=== PATIENT | female | born 2000 | race Caucasian/White ===

== ENCOUNTER 2020-07-18 22:41 | Emergency (ER) | payer BC, SELFPAY ==
--- NOTE | ~2020-07-18 | CT_ITS ---
EXAMINATION: CT abdomen pelvis w con EXAM DATE: 07/19/2020 00:27 INDICATION: Abdominal pain. TECHNIQUE: Spiral CT of the abdomen and pelvis was performed following intravenous injection of 100 m L Omnipaque 350. Axial, coronal and sagittal images of the abdomen and pelvis were reviewed. The do se-length product (DLP) for this examination was 550.84 mGy-cm. The exposure was tailored according to patient size (auto mA exposure control), and iterative reconstruction (ASIR) was used as additiona l dose reduction technique. There is no prior study for comparison. FINDINGS: The liver, spleen, adrenal glands and pancreas are unremarkable. The gallbladder is contra cted but otherwise unremarkable. Normal spleen size. Portal and splenic veins are patent. Kidneys e nhance symmetrically. There is no hydronephrosis. The uterus is retroverted and morphologically no rmal. The bladder is unremarkable. There is no retroperitoneal or pelvic lymphadenopathy. The appendix is normal. The stomach and small bowel are unremarkable. There is moderate amount of c olonic stool. No free intraperitoneal gas. The heart is normal in size. There are no pericardial or pleural effusions. The lung bases are unremarkable. The bones are unremarkable. IMPRESSION: 1. Moderate amount of colonic stool. Reviewed, dictated and finalized at location [facility].
[2020-07-18 22:43] VITALS: BP 122/68; PULSE 73; RESP 18; TEMP 36.3; O2SAT 100
[2020-07-18 23:05] LABS: Basophils Percent Auto 0.4 % (0.2-1.2); Eosinophils Absolute Auto 0.1 K/mm3 (0-0.3); Eosinophils Percent Auto 1.4 % (0-4.4); Hemoglobin 9.9 g/dL (12.0-15.0); Immature Granulocyte Absolute 0.01 K/mm3 (0.00-0.031); Immature Granulocyte Percent A 0.2 % (0-0.5); Lymphocytes Absolute Auto 2.07 K/mm3 (0.9-3.2); Lymphocytes Percent Auto 36.6 % (18.3-44.2); Mean Corpuscular Volume 73.5 fl (80-100); Mean Platelet Volume 9.3 fl (7.4-10.4); Monocytes Absolute Auto 0.4 K/mm3 (0.1-0.6); Monocytes Percent Auto 6.4 % (2.6-8.5); Neutrophils Absolute Auto 3.1 K/mm3 (1.3-6.7); Platelet Count Result 338 k/mm3 (150-375); Red Blood Count 4.49 M/mm3 (4.2-5.4); Red Cell Distribution Width 17.9 % (11.5-14.5); White Blood Count 5.7 K/mm3 (4.5-10.0)
[2020-07-18 23:16] LABS: Alanine Aminotransferase 17 U/L (4-35); Albumin Level 4.2 g/dL (3.5-5.1); Alkaline Phosphatase 74 U/L (38-126); Anion Gap 9 mmol/L (8-16); Aspartate Amino Transferase 29 U/L (14-36); Bilirubin,Total 0.2 mg/dL (0.2-1.3); Blood Urea Nitrogen 12 mg/dL (7-17); Calcium 9.2 mg/dL (8.4-10.2); Carbon Dioxide 23 mmol/L (22-30); Chloride 105 mmol/L (98-107); Estimated Glomerular Filt Rate > 60; Glucose 104 mg/dL (65-105); Lipase 134 U/L (23-300); Potassium 4.1 mmol/L (3.4-5.0); Sodium 137 mmol/L (137-145)
--- NOTE | 2020-07-18 23:30 | ED.GENADULT ---
HPI - General Adult General Chief complaint: Abdominal Pain Stated complaint: abd pain Time Seen by Provider: 07/18/20 23:27 Source: RN notes reviewed History of Present Illness HPI narrative: Patient presents emergency room from home for abdominal pain. Patient is presently on prior arrival she got a severe stabbing abdominal pain diffuse throughout her abdomen but worse on the left side. Patient states she had mono approximately 3 months ago and feels like her spleen is enlarged she feels she can see it sticking out of her stomach she denies having any fevers or chills chest pain or shortness of breath she states she did have an episode of diarrhea yesterday as well as nausea vomiting 2 days ago states she has been having intermittent abdominal pain for the past month she denies taking any medication for symptoms at home Related Data Allergies Allergy/AdvReac Type Severity Reaction Status Date / Time No Known Allergies Allergy Verified 07/18/20 23:59 Review of Systems Review of Systems: Narrative: Gen.: Denies fevers or chills ENT: Denies congestion Respiratory: Denies shortness of breath or cough CV: Denies chest pain or palpitations GI: See HPI denies burning, urgency, frequency or hematuria Musculoskeletal: Denies back pain or muscle pain Neuro: Denies numbness, tingling, weakness or focal weakness Skin: Denies rash Except as documented, all other systems reviewed and negative [facility] Past Medical History Medical History (Updated 07/19/20 @ 02:09 by Salvador Cook DO) Mononucleosis Social History Social History (Updated 07/18/20 @ 23:31 by Salvador Cook DO) Smoking status: Never smoker Exam Narrative: Exam Narrative: APPEARANCE: No acute distress, nontoxic, resting in bed HEENT: Normocephalic, atraumatic, OMM RESPIRATORY: No respiratory distress, clear to auscultation bilaterally with no rhonchi wheezing or rales CARDIOVASCULAR: RRR s murmur ABDOMINAL: Soft nondistended diffusely tender to palpation no rebound or guarding MUSCULOSKELETAl: Moves all extremities. No clubbing, cyanosis or edema. NEURO: Awake and alert. Following commands, speech normal, no focal deficits SKIN:: Warm, dry. Normal Color PSYCHIATRIC: Normal affect/mood Course Course Emergency Course: Patient had anemia states she does have a history of anemia Patient states that they are feeling much better at this time. States abdominal pain has improved. Repeat abdominal exam shows the patient's abdomen to be soft with no surgical abdomen present discussed with patient results of workup and diagnosis. Discussed need for follow-up with primary care physician, reasons to return to the emergency department in proper use of medication. Patient understands and agrees to current treatment plan Vital Signs Vital signs: Vital Signs Temperature 97.3 F L 07/18/20 22:43 Pulse Rate 73 07/18/20 22:43 Respiratory Rate 18 07/18/20 22:43 Blood Pressure 122/68 07/18/20 22:43 Pulse Oximetry 100 07/18/20 22:43 Temperature 98.5 F 07/18/20 23:55 Pulse Rate 74 07/18/20 23:55 Respiratory Rate 19 07/18/20 23:55 Blood Pressure 113/85 07/18/20 23:55 Pulse Oximetry 100 07/18/20 23:55 Medical Decision Making Vital Signs Vital Signs: Vital Signs Temperature 97.3 F L 07/18/20 22:43 Pulse Rate 73 07/18/20 22:43 Respiratory Rate 18 07/18/20 22:43 Blood Pressure 122/68 07/18/20 22:43 Pulse Oximetry 100 07/18/20 22:43 Temperature 98.5 F 07/18/20 23:55 Pulse Rate 74 07/18/20 23:55 Respiratory Rate 19 07/18/20 23:55 Blood Pressure 113/85 07/18/20 23:55 Pulse Oximetry 100 07/18/20 23:55 Lab Data Result diagrams: 07/18/20 22:59 07/18/20 22:59 Labs: Lab Results 07/18/20 07/18/20 07/19/20 Range/Units 22:59 22:59 01:45 WBC 5.7 (4.5-10.0) K/mm3 RBC 4.49 (4.2-5.4) M/mm3 Hgb 9.9 L (12.0-15.0) g/dL Hct 33.0 L (37.0-47.0) % MCV 73.5
[2020-07-18] MEDS: SODIUM CHLORIDE 0.9% IV 1,000 ML 999 ML IV CONT (23:53)
[2020-07-18 23:55] VITALS: BP 113/85; PULSE 74; RESP 19; TEMP 36.9; O2SAT 100
[2020-07-19] MEDS: MORPHINE SULFATE (*CRX) 2 MG/ML INJ IV PUSH (01:26)
[2020-07-19 01:30] VITALS: BP 120/66; PULSE 61; RESP 14; O2SAT 99
[2020-07-19 02:03] LABS: Add Urine Microscopic? YES; Appearance Urine Clear (Clear); Bacteria Urine Trace /hpf; Bilirubin Urine Negative (Negative); Blood Urine Negative (Negative); Color Urine Straw (Yellow); Glucose Urine UA Negative (Negative); Ketones Urine Negative (Negative); Leukocyte Esterase Ur Trace LEU/UL (Negative); Nitrate Urine Negative (Negative); Protein Urine Negative (Negative); Squamous Epithelial Cell Urine Few /hpf (Few); Urobilinogen Urine Negative mg/dL (<2.0)
[2020-07-19 02:05] LABS: Specific Grav Ur 1.055 (1.001-1.035)
[2020-07-19 02:20] VITALS: BP 111/73; PULSE 74; RESP 12; O2SAT 98
[2020-07-19] MEDS: NITROFURANTOIN MONOHYD MACROCR 100 MG CAP PO (02:24)
== END 2020-07-19 02:28 | disposition home or self-care (01) ==
PROVIDERS: Emergency Provider Emergency Medicine; PCP Registered Nurse
DX: R10.9 Unspecified abdominal pain (principal); Z86.19 Personal history of other infectious and parasitic diseases
CPT/HCPCS: 36415; 74177; 80053; 81001; 81025; 83690; 85025; 96361; 96374; 96375; 99284; A9270; J0131; J2270; J7030; Q9967

== ENCOUNTER 2020-08-17 07:55 | Outpatient (CLI) | payer BC, SELFPAY ==
--- NOTE | ~2020-08-17 | US_ITS ---
US right upper quadrant DATE: 08/17/2020 08:49 INDICATION: Right upper quadrant abdominal pain TECHNIQUE: Real-time imaging of liver, pancreas, gallbladder COMPARISON: 07/19/2020 CT abdomen pelvis 09/08/2018 complete abdominal ultrasound FINDINGS: No hepatic or pancreatic space-occupying mass lesion is evident. Normal hepatopedal portal venous flow direction. No gallstones or gallbladder wall thickening or pericholecystic abnormal fluid collection. The common bile duct measures 2.6 mm, normal. IMPRESSION: Normal examination Reviewed, dictated and finalized at [facility]. Reviewed, dictated and finalized at location A. IMPRESSION: Normal examination
== END 2020-08-17 07:56 | disposition home or self-care (01) ==
PROVIDERS: PCP Registered Nurse; Visit Provider Registered Nurse
DX: R10.11 Right upper quadrant pain (principal)
CPT/HCPCS: 76705